=== PATIENT | male | born 1985 | race Caucasian/White ===

== ENCOUNTER 2016-06-13 15:07 | Emergency (ER) | payer MEDICAID ==
--- NOTE | 2016-06-13 15:36 | Emergency Department Record ---
History of Present Illness - General Chief Complaint: Chest Pain Stated Complaint: CHEST PAIN Source: Patient Mode of Arrival: Wheelchair Limitations: No limitations - History of Present Illness Initial Comments: 30 yo male presents to ED with a CC of fatigue and chest discomfort associated with a non-productive cough symptoms. Patient denies fevers, chills, vomiting, or pain with deep inspiration. Patient reports recent diagnosis of bronchitis, denies health problems at his baseline. Patient denies history of DVT/PE, calf pain or swelling, or recent travel. MD Complaint: Chest pain Onset/Timin -: Hour(s) Onset: Other Pain Location: Substernal Pain Radiation: Back Severity: Moderate Severity scale (1-10): 1 Quality: Other Consistency: Other Improves With: Nothing Worsens With: Nothing Anginal Symptoms: Nausea, Other Treatments Prior to Arrival: None - Related Data Home Medications Medication Instructions Recorded Confirmed Last Taken Albuterol Sulfate [Proair Hfa] 1 - 2 puff IH Q4-6HR inhaler 05/30/16 Unknown Dextroamphetamine/Amphetamine 20 mg PO tab 05/30/16 06/13/16 [Adderall] Previous Rx's Medication Instructions Recorded Doxycycline Hyclate [Doxycycline] 100 mg PO BID #20 cap 06/13/16 Ondansetron [Zofran Odt] 4 mg PO Q4H PRN #20 tab.rapdis 06/13/16 Allergies Allergy/AdvReac Type Severity Reaction Status Date / Time erythromycin ethylsuccinate Allergy RASH Verified 06/13/16 15:10 [From Pediazole] sulfisoxazole acetyl Allergy RASH Verified 06/13/16 15:10 [From Pediazole] Travel Screening - Travel/Exposure Within Last 30 Days Have you traveled within the last 30 days?: No - Travel/Exposure Within Last Year Have you traveled outside the [place] in the last year?: No - Additonal Travel Details Have you been exposed to anyone with a communicable illness?: No - Travel Symptoms Symptom Screening: None Review of Systems Constitutional: Denies: Chills, Fever, Malaise, Night sweats Eyes: Denies: Eye discharge, Eye pain ENT: Reports: Congestion. Denies: Ear pain Respiratory: Reports: Cough. Denies: Dyspnea, Wheezes Cardiovascular: Reports: Chest pain. Denies: Dyspnea on exertion, Palpitations Endocrine: Reports: Fatigue. Denies: Heat or cold intolerance Gastrointestinal: Reports: Nausea. Denies: Abdominal pain, Vomiting Genitourinary: Denies: Incontinence, Retention Musculoskeletal: Denies: Arthralgia, Back pain Skin: Denies: Bruising, Change in color, Change in hair/nails, Rash Neurological: Denies: Abnormal gait, Confusion, Headache, Seizure Psychiatric: Reports: Anxiety Hematological/Lymphatic: Denies: Anemia, Blood Clots Past Medical History - SOCIAL HISTORY Smoking Status: Never smoker Alcohol Use: Rare Drug Use: None - RESPIRATORY Hx Respiratory Disorders: Yes Hx Asthma: Yes - CARDIOVASCULAR Hx Cardio Disorders: No - NEURO Hx Neuro Disorders: No - GI Hx GI Disorders: No - Hx Genitourinary Disorders: No - ENDOCRINE Hx Endocrine Disorders: No - MUSCULOSKELETAL Hx Musculoskeletal Disorders: No - PSYCH Hx Psych Problems: No - HEMATOLOGY/ONCOLOGY Hx Hematology/Oncology Disorders: No Family Medical History Any Significant Family History?: Yes Hx Heart Disease: Grandparents Physical Exam - General General Appearance: Alert, Oriented x3, Cooperative, Mild distress, Anxious Limitations: No limitations - Head Head exam: Atraumatic, Normocephalic, Normal inspection Head exam detail: negative: Abrasion, Contusion, Bender's sign, General tenderness, Hematoma, Laceration - Eye Eye exam: Normal appearance. negative: Conjunctival injection, Periorbital swelling, Periorbital tenderness, Scleral icterus - ENT Ear exam: negative: Auricular hematoma, Auricular trauma Nasal Exam: negative: Active bleeding, Discharge, Dried blood, Foreign body Mouth exam: negative: Drooling, Laceration, Muffled voice, Tongue elevation - Neck Neck exam: Normal inspection. negative: Meningismus, Tenderness - Respiratory Respiratory exam: Normal lung sounds bilaterally. negative: Respiratory distress, Rhonchi, Stridor, Wheezes - Cardiovascular Cardiovascular Exam: Normal rhythm, Normal heart sounds, Tachycardia - GI/Abdominal GI/Abdominal exam: Soft. negative: Rebound, Rigid, Tenderness - Rectal Rectal exam: Deferred - exam: Deferred - Extremities Extremities exam: Normal inspection. negative: Calf tenderness, Pedal edema, Tenderness - Back Back exam: Reports: Normal inspection. Denies: CVA tenderness (R), CVA tenderness (L), Paraspinal tenderness, Rash noted - Neurological Neurological exam: Alert, Normal gait, Oriented X3 - Psychiatric Psychiatric exam: Anxious, Normal mood - Skin Skin exam: Normal color. negative: Abrasion Type of lesion: negative: abrasion Course Vital Signs 06/13/16 15:12 Temperature 98.3 F Pulse Rate 114 H Respiratory 18 Rate Blood Pressure 127/91 Pulse Ox 99 - Reevaluation(s) Reevaluation #1: 06/13/16 15:35 EKG: NSR 107 Normal axis, normal intervals J-point elevation V2-V4, no ST elevation present, no reciprocal changes are present. Reevaluation #2: 06/13/16 16:20 Labs reviewed, WBC 12.8, ESR 1, CRP 1.1. Labs are otherwise grossly unremarkable for an acute process. Reevaluation #3: 06/13/16 16:33 CXR: No acute process. Patient was updated on all results, CRP/ESR are negative for pericarditis, CXR negative, and with patient's non-productive cough symptoms, will treat with Doxycycline. Patient appears stable for discharge at this time. Medical Decision Making - Lab Data Result diagrams: 06/13/16 15:10 06/13/16 15:10 Disposition Disposition: Discharge Clinical Impression: Upper respiratory tract infection Qualifiers: URI type: unspecified URI Qualified Code(s): J06.9 - Acute upper respiratory infection, unspecified Disposition: Home, Self-Care Condition: (2) Stable Instructions: Upper Respiratory Infection (ED) Additional Instructions: Return to ED if your symptoms worsen or if you have any concerns. Doxycyline and Zofran as directed. Follow-up with your family doctor in 3-5 days as directed. Prescriptions: Doxycycline Hyclate [Doxycycline] 100 mg PO BID #20 cap Ondansetron [Zofran Odt] 4 mg PO Q4H PRN #20 tab.rapdis PRN Reason: Nausea/Vomiting Forms: Patient Portal Access Time of Disposition: 16:36
[2016-06-13 15:40] LABS: HEMOGLOBIN 16.7 gm/dl (14.0-18.0); MEAN CELL VOLUME 80.8 fl (81-97); MEAN CORPUSCULAR HEMOGLOBIN 29.3 pg (27-33); MEAN CORPUSCULAR HGB CONC 36.3 g/dl (32-36); MEAN PLATELET VOLUME 11.1 fl (7.4-10.4); PLATELET COUNT 197 K/uL (130-400); RED BLOOD COUNT 5.69 M/uL (4.40-5.70); RED CELL DISTRIBUTION WIDTH 13.2 % (11.5-14.5); WHITE BLOOD COUNT W/O DIFF 12.8 K/uL (4.2-12.2)
[2016-06-13] MEDS ORDERED: 0.9 % SODIUM CHLORIDE 1000ML 1,000 ML IV SCH (15:45)
[2016-06-13 15:48] LABS: PLATELET ESTIMATE NORMAL (NORMAL)
[2016-06-13 15:54] LABS: ALBUMIN 4.8 gm/dL (3.5-5.0); ALKALINE PHOSPHATASE 81 U/L (38-126); ALT/SGPT 50 U/L (21-72); ANION GAP 17.4 (7-16); AST/SGOT 19 U/L (17-59); BILIRUBIN,TOTAL 0.78 mg/dL (0.2-1.3); BLOOD UREA NITROGEN 14 mg/dL (9-20); C-REACTIVE PROTEIN 1.1 mg/dL (0.0-0.9); CARBON DIOXIDE 21.6 mmol/L (22-30); CREATININE 0.9 mg/dL (0.66-1.25); EST GLOMERULAR FILTRATION RATE > 60 ml/min; GLUCOSE,RANDOM 106 mg/dL (70-110); TOTAL PROTEIN 7.2 gm/dL (6.3-8.2)
[2016-06-13 16:03] LABS: TROPONIN I < 0.012 ng/mL (0.00-0.034)
[2016-06-13] MEDS ORDERED: ONDANSETRON HCL IV 4 MG/2 ML VIAL IVP ONE (16:13)
[2016-06-13 16:15] LABS: ERYTHROCYTE SEDIMENTATION RATE 1 mm/hr (0-15)
--- NOTE | 2016-06-17 08:27 | RADIOLOGY REPORT ---
EXAM: CHEST, TWO VIEWS HISTORY: CHEST PAIN, CHEST PRESSURE AND COUGH TODAY. TECHNIQUE: PA and lateral views of the chest were obtained. Comparison: None. FINDINGS: The heart size is normal. Slight elevation of the left hemidiaphragm with some gaseous distention of the underlying stomach. No acute infiltrate is seen. No pleural effusion or pneumothorax evident. IMPRESSION: MILD ELEVATION OF THE LEFT HEMIDIAPHRAGM. NO ACUTE INFILTRATE IDENTIFIED. JOB NUMBER: [id number] MTDD
== END 2016-06-13 16:48 | disposition home or self-care (01) ==
LOC: ER 15:07 → MERGE 15:07 → ER 16:48
DX: J06.9 Acute upper respiratory infection, unspecified (principal); R07.2 Precordial pain; R53.83 Other fatigue; R11.0 Nausea; R42 Dizziness and giddiness
CPT/HCPCS: 99284 ×2; 85651; 86140; 84484; 80053; 85379; 85027; 71020; 93005; 93010; J2405; J7030